=== PATIENT | female | born 1990 ===

== ENCOUNTER 2020-01-17 14:46 | Inpatient (IN) ==
[2020-01-17] MEDS ORDERED: ONDANSETRON 4 MG/2 ML VIAL IV PRN (14:59)
[2020-01-17] MEDS ORDERED: MEPERIDINE 50 MG/1 ML VIAL IV PRN (14:59)
[2020-01-17] MEDS ORDERED: DINOPROSTONE VAG GEL 10 MG SYRINGE VAG ONE ×2 (15:10→15:12)
[2020-01-17 15:30] LABS: Basophils % 0.2 % (0.0-0.8); Eosinophils % 0.5 % (0.00-10.9); Hematocrit 35.9 VOL% (35.7-47.0); Hemoglobin 11.8 GM/DL (12.0-16.0); Immature Granulocytes % 0.6 %; Immature Granulocytes Absolute 0.04 #; Lymphocytes # 1.1 10*3/uL (1.4-4.0); Lymphocytes % 17.2 % (21.3-54.2); Mean Corpuscular HGB Conc 32.9 GM/DL (32-36); Mean Corpuscular Volume 90.7 FL (87-102); Mean Platelet Volume 9.9 FL (9.6-12.0); Neutrophils % 75.5 % (38.7-73.9); Platelet Count 216 T/CUMM (130-400); Red Blood Count 3.96 MC/CUMM (3.8-5.5); White Blood Count 6.6 T/CUMM (4-12)
[2020-01-17 15:51] LABS: INR 0.9; PT Patient Result 9.5 SECS (9.8-11.9); Partial Thromboplastin Time 28.6 SECS (23.9-33.8)
[2020-01-17 15:57] LABS: Alanine Aminotransferase 14 U/L (13-56); Albumin 2.3 G/DL (3.4-5.0); Alkaline Phosphatase 154 U/L (45-117); Aspartate Amino Transferase 15 U/L (0-37); Bilirubin,Total < 0.39 MG/DL (0.2-1.0); Blood Urea Nitrogen 12 MG/DL (7-18); Calcium 8.7 MG/DL (8.5-10.1); Estimated Glom Filtration Rate 128 ML/MIN; Glucose 85 MG/DL (74-106); Osmolality,Calculated 275.5 MOS/KG (273-304); Total Protein 6.3 G/DL (6.4-8.3); Uric Acid 5.5 MG/DL (2.6-6.0)
[2020-01-17] MEDS ORDERED: hydrALAZINE 20 MG/1 ML VIAL IV ONE (18:15)
[2020-01-17] MEDS: LABETALOL 200 MG TABLET PO SCH (21:21)
[2020-01-18] MEDS: BUTORPHANOL 2 MG/ML VIAL IV PRN ×3 (00:40→08:59)
[2020-01-18] MEDS ORDERED: OXYTOCIN/LR 20 UNIT/1,000 ML BAG IV SCH (02:00)
[2020-01-18] MEDS: LACTATED RINGERS 1,000 ML IV SCH ×2 (02:00→12:07)
[2020-01-18] MEDS: LABETALOL 200 MG TABLET PO SCH ×2 (08:55)
[2020-01-18] MEDS ORDERED: ePHEDrine 50 MG/ML AMP IV PRN (14:32)
[2020-01-18] MEDS ORDERED: CITRIC ACID/SODIUM CITRATE 30 ML UDCUP PO ONE (14:32)
[2020-01-18] MEDS ORDERED: hydrOXYzine HCL 25 MG/1 ML VIAL IM PRN (14:32)
[2020-01-18] MEDS ORDERED: FAMOTIDINE 20 MG/2 ML VIAL IV ONE (14:32)
[2020-01-18] MEDS ORDERED: diphenhydrAMINE 50 MG/1 ML VIAL IV PRN ×2 (14:32)
[2020-01-18] MEDS ORDERED: ONDANSETRON 4 MG/2 ML VIAL IV ONE (14:32)
[2020-01-18] MEDS ORDERED: NALOXONE 0.4 MG/ML VIAL IV PRN (14:32)
[2020-01-18] MEDS ORDERED: PROMETHAZINE 25 MG/1 ML VIAL IM ONE (14:32)
[2020-01-18] MEDS ORDERED: fentaNYL 2 MCG/ROPIV 0.2% EPID 100 ML EPIDURAL SCH (15:00)
[2020-01-18] MEDS ORDERED: OXYTOCIN/LR 20 UNIT/1,000 ML BAG IV ONE ×2 (16:00→19:03)
[2020-01-18] MEDS ORDERED: OXYTOCIN 10 UNIT/ML VIAL IM ONE (16:01)
[2020-01-18] MEDS ORDERED: OXYTOCIN/LR 30 UNIT/1,000 ML BAG IV ONE (16:01)
[2020-01-18] MEDS ORDERED: ceFAZolin 3,000 MG in SYRINGE 1 EACH IV ONE (16:56)
[2020-01-18] MEDS ORDERED: MORPHINE 10 MG/10 ML VIAL ONE (17:49)
[2020-01-18] MEDS ORDERED: LIDOCAINE MPF 2% /EPI 20 ML VIAL ONE (17:50)
[2020-01-18] MEDS ORDERED: METHYLERGONOVINE 0.2 MG/1 ML AMP ONE (18:34)
[2020-01-18] MEDS ORDERED: CARBOPROST TROMETHAMINE 250 MCG/ML AMP IM ONE (18:36)
[2020-01-18] MEDS ORDERED: RHO(D) IMMUNE GLOBULIN 300 MCG SYRINGE IM ONE (19:03)
[2020-01-18] MEDS ORDERED: ACETAMINOPHEN 325 MG TABLET PO PRN (19:03)
[2020-01-18] MEDS ORDERED: IBUPROFEN 800 MG TABLET PO PRN (19:03)
[2020-01-18] MEDS ORDERED: MAGNESIUM HYDROXIDE SUSP 30 ML UDCUP PO PRN (19:03)
[2020-01-18] MEDS ORDERED: SIMETHICONE CHEW 80 MG TABLET PO PRN (19:03)
[2020-01-18] MEDS ORDERED: ONDANSETRON 4 MG/2 ML VIAL IV PRN (19:03)
[2020-01-18] MEDS ORDERED: LACTATED RINGERS 1,000 ML IV SCH (19:30)
[2020-01-18] MEDS: DOCUSATE SODIUM 100 MG CAPSULE PO SCH (22:59)
[2020-01-19] MEDS: ceFAZolin 1,000 MG in SYRINGE 1 EACH IV SCH ×2 (02:08→11:33)
[2020-01-19 04:51] LABS: Basophils % 0.1 % (0.0-0.8); Eosinophils % 0.1 % (0.00-10.9); Hematocrit 30.3 VOL% (35.7-47.0); Hemoglobin 9.8 GM/DL (12.0-16.0); Immature Granulocytes % 0.5 %; Immature Granulocytes Absolute 0.05 #; Lymphocytes # 0.8 10*3/uL (1.4-4.0); Lymphocytes % 7.7 % (21.3-54.2); Mean Corpuscular HGB Conc 32.3 GM/DL (32-36); Mean Corpuscular Volume 89.9 FL (87-102); Mean Platelet Volume 10.1 FL (9.6-12.0); Monocytes % 5.6 % (1.7-12.7); Platelet Count 185 T/CUMM (130-400); Red Blood Count 3.37 MC/CUMM (3.8-5.5); Red Cell Distribution Width 15.3 % (9.3-17.3); White Blood Count 10.5 T/CUMM (4-12)
[2020-01-19] MEDS: METOCLOPRAMIDE 10 MG TABLET PO SCH ×2 (07:51→15:47)
[2020-01-19] MEDS: DOCUSATE SODIUM 100 MG CAPSULE PO SCH ×3 (07:52→23:35)
[2020-01-19 08:32] LABS: Basophils % 0.3 % (0.0-0.8); Eosinophils % 0.2 % (0.00-10.9); Hematocrit 29.5 VOL% (35.7-47.0); Hemoglobin 9.6 GM/DL (12.0-16.0); Immature Granulocytes % 0.3 %; Immature Granulocytes Absolute 0.03 #; Lymphocytes # 1.2 10*3/uL (1.4-4.0); Lymphocytes % 11.7 % (21.3-54.2); Mean Corpuscular HGB Conc 32.5 GM/DL (32-36); Mean Corpuscular Volume 91.3 FL (87-102); Monocytes % 5.8 % (1.7-12.7); Neutrophils % 81.7 % (38.7-73.9); Platelet Count 185 T/CUMM (130-400); Red Blood Count 3.23 MC/CUMM (3.8-5.5); Red Cell Distribution Width 15.3 % (9.3-17.3); White Blood Count 10.4 T/CUMM (4-12)
[2020-01-19] MEDS: FERROUS SULFATE 325 MG TABLET PO SCH (09:11)
[2020-01-19] MEDS: MULTIVITAMIN (PRENATAL) TABLET PO SCH (09:11)
[2020-01-19] MEDS ORDERED: MAGNESIUM CITRATE 300 ML BOTTLE PO ONE (22:00)
[2020-01-20] MEDS: METOCLOPRAMIDE 10 MG TABLET PO SCH (00:03)
[2020-01-20] MEDS ORDERED: IBUPROFEN 800 MG TABLET PO PRN (05:04)
[2020-01-20] MEDS: FERROUS SULFATE 325 MG TABLET PO SCH (08:57)
[2020-01-20] MEDS: DOCUSATE SODIUM 100 MG CAPSULE PO SCH (08:58)
[2020-01-20] MEDS: MULTIVITAMIN (PRENATAL) TABLET PO SCH (08:58)
[2020-01-20] MEDS ORDERED: DIPH/TET/ACEL PERT BOOSTER VACCINE 0.5 ML VIAL IM ONE (12:20)
[2020-01-20 14:39] VITALS: BP 138/89
== END 2020-01-20 15:10 | disposition home or self-care (01) | DRG 788 ==
LOC: N.LDOUT 14:46 → N.LD 14:49 → N.OB 01-18 22:15
PROVIDERS: ADMIT Obstetrics & Gynecology; ATTEND Obstetrics & Gynecology
PROC: LDCSECT (ICD-10-PCS; 2020-01-18 16:00)

== ENCOUNTER 2022-08-04 16:03 | Inpatient (IN) ==
[2022-08-04] MEDS ORDERED: MORPHINE 2 MG/1 ML SYRINGE IV PRN (17:01)
[2022-08-04] MEDS ORDERED: TEMAZEPAM 15 MG CAPSULE PO PRN (17:01)
[2022-08-04] MEDS ORDERED: LACTATED RINGERS 1,000 ML IV SCH (17:30)
[2022-08-04 17:51] LABS: Basophils % 0.3 % (0.0-0.8); Eosinophils # 0.1 10*3/uL (0.0-0.87); Hematocrit 40.6 VOL% (35.7-47.0); Hemoglobin 13.1 GM/DL (12.0-16.0); Immature Granulocytes % 0.2 %; Immature Granulocytes Absolute 0.01 #; Lymphocytes # 1.4 10*3/uL (1.4-4.0); Lymphocytes % 22.7 % (21.3-54.2); Mean Corpuscular HGB Conc 32.3 GM/DL (32-36); Mean Corpuscular Volume 91.6 FL (87-102); Mean Platelet Volume 9.5 FL (9.6-12.0); Monocytes # 0.5 10*3/uL (0.11-0.8); Neutrophils % 66.8 % (38.7-73.9); Platelet Count 284 T/CUMM (130-400); Red Blood Count 4.43 MC/CUMM (3.8-5.5); Red Cell Distribution Width 13.6 % (9.3-17.3)
[2022-08-04 18:18] LABS: Alanine Aminotransferase 56 U/L (13-56); Albumin 3.3 G/DL (3.4-5.0); Alkaline Phosphatase 79 U/L (45-117); Aspartate Amino Transferase 21 U/L (0-37); Bilirubin,Total < 0.39 MG/DL (0.20-1.00); Blood Urea Nitrogen 16 MG/DL (7-18); Calcium 8.7 MG/DL (8.5-10.1); Carbon Dioxide 29 MMOL/L (21-32); Chloride 109 MMOL/L (98-107); Glucose 91 MG/DL (74-106); Osmolality,Calculated 279.4 MOS/KG (273-304); Potassium 3.7 MMOL/L (3.5-5.1); Sodium 140 MMOL/L (136-145); Total Protein 7.2 G/DL (6.4-8.2)
[2022-08-04 22:20] LABS: Mucus,Urine Moderate /LPF (Occasional); RBC,Urine 4 /HPF (0-4); Squamous Epithelial Cell,Urine Occasional /HPF (0-10)
[2022-08-04 22:21] LABS: Bilirubin,Urine Negative (Negative); Blood, Urine Negative (Negative); Glucose,Urine (UA) Negative (Negative); Ketones,Urine Negative (Negative); Nitrite,Urine Negative (Negative); Protein,Urine Negative (Negative); Urine Appearance Clear (Clear); Urine Color Yellow (Yellow); Urine Specific Gravity 1.025 (1.001-1.035); Urine Urobilinogen 0.2 eU/dL (<2.0); Urine pH 6.5 (4.5-8.0)
[2022-08-04] MEDS: MORPHINE 2 MG/1 ML SYRINGE IV PRN (23:27)
[2022-08-05] MEDS: ONDANSETRON 4 MG/2 ML VIAL IV PRN ×2 (01:05→13:56)
[2022-08-05] MEDS ORDERED: ceFAZolin 2,000 MG/50 ML DUPLEX IV ONE (06:00)
[2022-08-05] MEDS ORDERED: diphenhydrAMINE CAP 25 MG CAPSULE PO PRN (08:15)
[2022-08-05] MEDS ORDERED: ALBUTEROL 2.5 MG/3 ML NEB RESP TX PRN (08:17)
[2022-08-05] MEDS ORDERED: LABETALOL 20 MG/4 ML SYRINGE IV ONE (08:30)
[2022-08-05] MEDS ORDERED: hydrALAZINE 20 MG/1 ML VIAL IV ONE (08:30)
[2022-08-05] MEDS ORDERED: PANTOPRAZOLE 40 MG TABLET PO SCH ×2 (09:00→11:00)
[2022-08-05] MEDS ORDERED: ONDANSETRON 4 MG/2 ML VIAL IV PRN (09:09)
[2022-08-05] MEDS ORDERED: MEPERIDINE 25 MG/1 ML VIAL IV PRN (09:09)
[2022-08-05] MEDS ORDERED: lisinopriL 10 MG TABLET PO SCH (11:00)
[2022-08-05] MEDS: MORPHINE 2 MG/1 ML SYRINGE IV PRN (11:59)
[2022-08-05] MEDS ORDERED: ceFAZolin 2,000 MG/50 ML DUPLEX IV SCH (14:00)
[2022-08-05] MEDS ORDERED: PROMETHAZINE 25 MG/1 ML VIAL IM ONE (14:19)
[2022-08-05 15:23] VITALS: BP 112/61
[2022-08-05] MEDS ORDERED: MONTELUKAST 10 MG TABLET PO SCH (21:00)
== END 2022-08-05 19:16 | disposition home or self-care (01) | DRG 494 ==
LOC: N.3E
PROVIDERS: ADMIT Orthopaedic Surgery; ATTEND Orthopaedic Surgery